=== PATIENT | female | born 1985 | race Caucasian/White ===

== ENCOUNTER → 2017-06-01 | Outpatient (CLI) | payer OTHER ==
[~2017-06-01] MED LIST: CYCL10 PO; HYDACE5 PO; Hydrochlorothia25 MG PO; LAMO25 PO; RXCYCL10 PO; [UNRECOGNIZED DRUG - REMARK]
[2017-06-01 17:03] LABS: Specimen Source URINE
[2017-06-02 14:57] LABS: Source Urine
== END ==
LOC: LAB 17:02
PROVIDERS: Registered Nurse Community Health
DX: Z11.3 Encounter for screening for infections with a predominantly sexual mode of transmission (principal)
CPT/HCPCS: 87491; 87591

== ENCOUNTER → 2021-07-24 | Outpatient (CLI) | payer OTHER ==
[~2021-07-24] MED LIST changes: +Crutch1 EACH MISC; +Percocet 5-3251 EACH PO; +Prozac40 MG PO; +ULTRA-LIGHT RO1 EACH MC
[2021-07-29 09:11] LABS: HPV 16 Negative (Negative); HPV 18 Negative (Negative); HPV OTHER HR TYPES Negative (Negative)
== END | disposition home or self-care (01) ==
LOC: LAB 08:10
PROVIDERS: Family Medicine
DX: Z01.419 Encounter for gynecological examination (general) (routine) without abnormal findings (principal)
CPT/HCPCS: 87624; G0145